=== PATIENT | female | born 1960 | race Caucasian/White ===

== ENCOUNTER → 2016-09-14 | Outpatient (CLI) | payer MEDICAID, OTHER ==
[2016-09-14 07:33] LABS: Basophils % (A) 1 %; CH 28.9; CHCM 35.3; Eosinophils # (A) 0.3 k/uL (0-0.7); Eosinophils % (A) 3 %; HCT 36.6 % (34.0-46.0); HDW 3.47; Luc # (Auto) 0.15; Luc % (Auto) 2; Lymphocytes # (A) 2.5 k/uL (1.0-4.8); Lymphocytes % (A) 33 %; MCH 29.1 pg (25.0-35.0); MCHC 35.5 g/dL (31.0-37.0); MCV 82.1 fL (80.0-100.0); Mean Platelet Volume 7.5; Monocytes # (A) 0.3 k/uL (0-1.0); Monocytes % (A) 4 %; Neutrophils # (A) 4.3 k/uL (1.3-7.7); Neutrophils % (A) 57 %; Poikilocytosis Slight; RBC 4.45 m/uL (3.80-5.40); RDW 14.6 % (11.5-15.5); WBC 7.7 k/uL (3.8-10.6); WBC (Perox) 7.31
[2016-09-14 07:51] LABS: ALT 32 U/L (9-52); AST 23 U/L (14-36); Alkaline Phosphatase 58 U/L (38-126); Anion Gap 12 mmol/L; Blood Urea Nitrogen 19 mg/dL (7-17); Calcium 9.3 mg/dL (8.4-10.2); Carbon Dioxide 24 mmol/L (22-30); Chloride 106 mmol/L (98-107); Cholesterol 195 mg/dL (<200); Glucose 120 mg/dL (74-99); HDL Cholesterol 40 mg/dL (40-60); Non-African American GFR(MDRD) >60 (>60 ml/min/1.73 sqM); Potassium 4.3 mmol/L (3.5-5.1); Sodium 142 mmol/L (137-145); Total Bilirubin 0.5 mg/dL (0.2-1.3); Total Protein 7.6 g/dL (6.3-8.2); Triglycerides 166 mg/dL (<150)
[2016-09-14 13:34] LABS: Urine Creatinine 48.3 mg/dL
[2016-09-14 14:38] LABS: Hemoglobin A1C 5.8 % (4.2-6.1)
== END | disposition home or self-care (01) ==
LOC: LABWHC1 06:48
PROVIDERS: ATTEND Family Medicine
DX: E11.9 Type 2 diabetes mellitus without complications (principal); E78.2 Mixed hyperlipidemia; E55.9 Vitamin D deficiency, unspecified
CPT/HCPCS: 36415; 80053; 80061; 82043; 82306; 82570; 83036; 85025

== ENCOUNTER → 2016-11-26 | Outpatient (CLI) | payer MEDICAID, OTHER ==
--- NOTE | 2016-11-27 12:23 | MR ---
EXAMINATION TYPE: MR knee RT wo con DATE OF EXAM: 11/26/2016 10:22 AM COMPARISON: NONE HISTORY: Right knee pain TECHNIQUE: Multiplanar, multisequence imaging of the right knee is performed. FINDINGS: MEDIAL MENISCUS: Complex tear posterior horn and body medial meniscus. Anterior horn of the medial me niscus is intact with myxoid degeneration noted. LATERAL MENISCUS: Anterior and posterior horns are intact without tear. 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 CRUCIATE LIGAMENTS: The anterior and posterior cruciate ligaments are intact and unremarkable. COLLATERAL LIGAMENTS: The medial collateral ligament and lateral collateral ligament complex are intact and unremarkable. EXTENSOR MECHANISM: Visualized quadriceps and patellar tendons are intact. EFFUSION: Small joint effusion noted. POPLITEAL CYST: No popliteal/wolf cyst. TRICOMPARTMENT SPACES: Moderate narrowing medial tibiofemoral joint space as well as the patellofemor al joint space with associated spurring. CARTILAGE: The articular cartilage is maintained without abnormal signal or full-thickness defect. BONE MARROW SIGNAL: No focal abnormal marrow signal is appreciated: OTHER: No additional significant abnormality is appreciated. IMPRESSION: 1. Complex tear posterior horn medial meniscus. 2. Myxoid degeneration as discussed. 3. Changes of osteoarthritis.
== END | disposition home or self-care (01) ==
LOC: RADMRIMAIN 09:34
PROVIDERS: ATTEND Orthopaedic Surgery
DX: S83.231A Complex tear of medial meniscus, current injury, right knee, initial encounter (principal); M17.11 Unilateral primary osteoarthritis, right knee

== ENCOUNTER → 2016-12-06 | Outpatient (CLI) | payer MEDICAID, OTHER ==
--- NOTE | 2016-12-08 06:54 | MM ---
Reason for exam: screening (asymptomatic). Last mammogram was performed 1 year and 1 month ago. History: Patient is postmenopausal. Took hormonal contraceptives for 6 years beginning at age 23. Physical Findings: A clinical breast exam by your physician is recommended on an annual basis and results should be correlated with mammographic findings. MG 3D Screening Mammo W/Cad Bilateral CC and MLO view(s) were taken. Prior study comparison: November 03, 2015, bilateral MG 3d screening mammo w/cad. October 08, 2014, bilateral MG screening mammo w CAD. February 12, 2014, left breast MG diagnostic mammo LT w CAD. August 06, 2013, bilateral MG screening mammo w CAD. There are scattered fibroglandular densities. No significant changes when compared with prior studies. ASSESSMENT: Negative, BI-RAD 1 RECOMMENDATION: Routine screening mammogram of both breasts in 1 year.
== END | disposition home or self-care (01) ==
LOC: RADMAMWWP 09:15
PROVIDERS: ATTEND Family Medicine
DX: Z12.31 Encounter for screening mammogram for malignant neoplasm of breast (principal)
CPT/HCPCS: 77063; G0202

== ENCOUNTER → 2017-12-27 | Outpatient (CLI) | payer MEDICAID, OTHER ==
[2017-12-27 07:35] LABS: Basophils # (A) 0.1 k/uL (0-0.2); Basophils % (A) 1 %; Eosinophils # (A) 0.2 k/uL (0-0.7); Eosinophils % (A) 3 %; HCT 39.2 % (34.0-46.0); HGB 12.9 gm/dL (11.4-16.0); Lymphocytes # (A) 2.4 k/uL (1.0-4.8); Lymphocytes % (A) 31 %; MCH 28.6 pg (25.0-35.0); MCHC 32.9 g/dL (31.0-37.0); MCV 86.9 fL (80.0-100.0); Mean Platelet Volume 7.2; Monocytes # (A) 0.3 k/uL (0-1.0); Monocytes % (A) 5 %; Neutrophils # (A) 4.6 k/uL (1.3-7.7); Neutrophils % (A) 60 %; Platelet Count 207 k/uL (150-450); RBC 4.51 m/uL (3.80-5.40); RDW 14.4 % (11.5-15.5); WBC 7.7 k/uL (3.8-10.6)
[2017-12-27 17:45] LABS: Albumin 4.4 g/dL (3.80-4.90); Albumin/Globulin Ratio 1.76 (1.20-2.10); Anion Gap 8.3 mmol/L (4.00-12.00); Calcium 9.1 mg/dL (8.7-10.3); Carbon Dioxide 26.7 mmol/L (21.6-31.8); Globulin 2.5 g/dL (2.1-3.7); LDL Cholesterol,Calculated 111.8 mg/dL (0.0-131.0); Total Bilirubin 0.5 mg/dL (0.3-1.2); Total Protein 6.9 g/dL (6.2-8.2); VLDL Calculation 37.2 mg/dL (5.00-40.00)
[2017-12-27 17:52] LABS: T4, Free (Free Thyroxine) 1.2 ng/dL (0.80-1.80)
[2017-12-27 20:41] LABS: Hemoglobin A1C 6.1 % (4.0-6.0)
== END | disposition home or self-care (01) ==
LOC: LABWHC1 07:00
PROVIDERS: ATTEND Internal Medicine
DX: Z00.00 Encounter for general adult medical examination without abnormal findings (principal); E11.9 Type 2 diabetes mellitus without complications
CPT/HCPCS: 36415; 80053; 80061; 82043; 82570; 83036; 84439; 84443; 85025

== ENCOUNTER → 2018-02-01 | Outpatient (CLI) | payer MEDICAID, OTHER ==
--- NOTE | 2018-02-01 11:41 | ECHOF ---
Referral Reason:I47.9 paroxysmal tachycardia MEASUREMENTS -------- HEIGHT: 167.6 cm WEIGHT: 102.1 kg BP: RVIDd: 3.3 cm (< 3.3) IVSd: 1.1 cm (0.6 - 1.1) LVIDd: 4.8 cm (3.9 - 5.3) LVPWd: 1.1 cm (0.6 - 1.1) IVSs: 1.6 cm LVIDs: 2.6 cm LVPWs: 1.4 cm LA Diam: 3.7 cm (2.7 - 3.8) LAESV Index (A-L): 38.20 ml/m Ao Diam: 3.3 cm (2.0 - 3.7) AV Cusp: 2.1 cm (1.5 - 2.6) LA Diam: 3.1 cm (2.7 - 3.8) EPSS: 0.3 cm MV E Abraham: 0.68 m/s MV DecT: 230 ms MV A Abraham: 0.74 m/s MV E/A Ratio: 0.92 RAP: 5.00 mmHg RVSP: 32.25 mmHg MV EF SLOPE: 115.20 mm/s (70 - 150) MV EXCURSION: 1.59 cm (> 18.000) FINDINGS -------- Sinus rhythm. This was a technically adequate study. The left ventricular size is normal. There is borderline concentric left ventricular hypertrophy. Overall left ventricular systolic function is normal with, an EF between 55 - 60 %. The right ventricle is mildly enlarged. LA is moderately dilated 34-39 ml/m2 The right atrial size is normal. There is moderate aortic valve sclerosis. There is no evidence of aortic regurgitation. There is no evidence of aortic stenosis. The mitral valve leaflets are mildly thickened. Mild mitral regurgitation is present. Trace tricuspid regurgitation present. Right ventricular systolic pressure is normal at < 35 mmHg. The right ventricular systolic pressure, as measured by Doppler, is 32.25mmHg. Trace/mild (physiologic) pulmonic regurgitation. The aortic root size is normal. Normal inferior vena cava with normal inspiratory collapse consistent with estimated right atrial pre ssure of 5 mmHg. There is no pericardial effusion. CONCLUSIONS -------- 1. Sinus rhythm. 2. This was a technically adequate study. 3. The left ventricular size is normal. 4. There is borderline concentric left ventricular hypertrophy. 5. Overall left ventricular systolic function is normal with, an EF between 55 - 60 %. 6. The right ventricle is mildly enlarged. 7. LA is moderately dilated 34-39 ml/m2 8. There is moderate aortic valve sclerosis. 9. The mitral valve leaflets are mildly thickened. 10. Mild mitral regurgitation is present. 11. Trace tricuspid regurgitation present. 12. Right ventricular systolic pressure is normal at < 35 mmHg. 13. Trace/mild (physiologic) pulmonic regurgitation. 14. The aortic root size is normal. 15. There is no pericardial effusion. SENIOR STRATEGY MANAGER: Nakul Jerry RDCS
--- NOTE | 2018-02-02 13:20 | MM ---
Reason for exam: screening (asymptomatic). Last mammogram was performed 1 year and 2 months ago. History: Patient is postmenopausal. Took hormonal contraceptives for 6 years beginning at age 23. Physical Findings: A clinical breast exam by your physician is recommended on an annual basis and results should be correlated with mammographic findings. MG 3D Screening Mammo W/Cad Bilateral CC and MLO view(s) were taken. Prior study comparison: December 06, 2016, bilateral MG 3d screening mammo w/cad. November 03, 2015, bilateral MG 3d screening mammo w/cad. The breast tissue is heterogeneously dense. This may lower the sensitivity of mammography. There are benign appearing round calcifications bilaterally. There is no discrete abnormality. ASSESSMENT: Benign, BI-RAD 2 RECOMMENDATION: Routine screening mammogram of both breasts in 1 year.
== END | disposition home or self-care (01) ==
LOC: RADMAMWWP 07:44
PROVIDERS: ATTEND Internal Medicine
DX: Z12.31 Encounter for screening mammogram for malignant neoplasm of breast (principal); I51.7 Cardiomegaly; I34.0 Nonrheumatic mitral (valve) insufficiency; I37.1 Nonrheumatic pulmonary valve insufficiency; I35.8 Other nonrheumatic aortic valve disorders
CPT/HCPCS: 77063; 77067; 93306

== ENCOUNTER → 2019-01-08 | Outpatient (CLI) | payer MEDICAID, OTHER ==
--- NOTE | 2019-01-08 08:07 | XR ---
Cervical spine HISTORY: Neck pain and arm tingling 5 views of cervical spine There is multilevel spondylosis. Straightening of the cervical lordosis may be due to muscle spasm. T here is minimal anterolisthesis grade 1 C2-3, C4-5, retrolisthesis grade 1 C3-4, C5-6 and C6-7. There is multilevel loss of disc height especially C5-6 and C6-7, C7-T1. Prevertebral soft tissues are nor mal. Facet arthropathy changes present. Possible spinal curvature in the thoracic spine. Multilevel f oraminal encroachment due to uncovertebral joint hypertrophy to include C3-4, C4-5, C5-6 and C6-7 on the left, C5-6 and C6-7, C7-T1 on the right, possibly C7-T1 on the left. IMPRESSION: Degenerative disc disease, facet arthropathy, foraminal encroachment. Cervical MRI may be of benefit.
== END | disposition home or self-care (01) ==
LOC: RADXRMAIN 07:34
PROVIDERS: ATTEND Internal Medicine
DX: M50.30 Other cervical disc degeneration, unspecified cervical region (principal); M46.92 Unspecified inflammatory spondylopathy, cervical region
CPT/HCPCS: 72050

== ENCOUNTER → 2019-01-23 | Outpatient (CLI) | payer MEDICAID, OTHER ==
--- NOTE | 2019-01-23 09:50 | MR ---
"EXAMINATION TYPE: MR cervical spine wo con DATE OF EXAM: 01/23/2019 COMPARISON: 09/08/2011 HISTORY: radiculopathy cervical TECHNIQUE: Multiplanar, multisequence images of the cervical spine were acquired. C2-C3: Hypertrophic change of the facets with mild narrowing of the neural foramina. Bilateral joint hypertrophy greater on the right with greater foraminal encroachment. No disc herniation or canal mika nosis. C3-C4: Central disc herniation which abuts the anterior margin of the spinal cord. Uncovertebral join t hypertrophy and facet arthropathy contributes to mild foraminal encroachment. C4-C5: Degenerative disc disease with small focal right paracentral disc herniation abutting the ante rior margin of the spinal cord. Bilateral uncovertebral joint hypertrophy and facet arthropathy with mild bilateral foraminal encroachment. C5-C6: Severe degenerative disc disease with hypertrophic spurring and facet arthropathy. There is a severe canal stenosis and cord compression with a broad-based central and right paracentral disc shakira iation which is mildly progressed from the prior exam. Facet arthropathy and uncovertebral joint proj ecting contribute to severe bilateral foraminal encroachment. C6-C7: Central disc herniation with anterior cord compression which is similar appearance to the prio r exam. Uncovertebral joint hypertrophy contributes to severe bilateral foraminal encroachment. There is severe canal stenosis. C7-T1: No evidence for degenerative disc disease. No disc bulge/herniation or protrusion. No Canal stenosis. Foramina are patent bilaterally. Cervical segments are intact. There is normal alignment. Cervical spinal cord is of normal signal. Craniovertebral junction relationships are within normal limits. IMPRESSION: 1. There is mild compression of the largest disc herniation C5-C6 greater paracentrally the right and severe canal stenosis and marked cord compression. Degree of compressive myelitis not excluded. 2. Stable large central disc herniation C6-C7 with spinal cord compression and severe canal stenosis with bilateral foraminal encroachment. 3. Disc herniation C3-C4 and C4-C5 as discussed above which abuts the anterior margin of the spinal c ord with no significant displacement. A [place] level critical message alert has been initiated for Adamaris Flores MD via the [employer] 0 | Critical Results System on 01/23/2019 9:46 AM. This message alert has been sent to Adamaris Flores MD via the preferences provided by the clinician for the receipt of Radiology Critical Findings. [facility] – [place] [id number]."
== END | disposition home or self-care (01) ==
LOC: RADMRIMAIN 08:40
PROVIDERS: ATTEND Internal Medicine
DX: M48.02 Spinal stenosis, cervical region (principal); M50.11 Cervical disc disorder with radiculopathy, high cervical region; M53.82 Other specified dorsopathies, cervical region
CPT/HCPCS: 72141

== ENCOUNTER 2019-03-20 07:06 | Observation (INO) | payer MEDICAID, BC ==
[2019-03-14 10:47] VITALS: BMI 36.3
[~2019-03-20 07:06] MED LIST: BACITRACIN 50,000 UNIT, POLYMYXIN B 500,000 UNIT in SODIUM CHLORIDE 0.9% IRRIGATIO 1,00... IRRIGATION ONE; LIDOCAINE 1% 20 ML VIAL (10MG/ML) FOR IV START INTRADERMA PRN; ONDANSETRON 4 MG/2 ML VIAL IVP ONE
[2019-03-20] MEDS: LACTATED RINGERS 1,000 ML IV SCH (07:36)
[2019-03-20 07:41] LABS: Glucose,Whole Blood 147 mg/dL (75-99)
[2019-03-20] MEDS ORDERED: DEXAMETHASONE SOD PHOS (MDV) 100 MG/10 ML VIAL ONE (08:20)
[2019-03-20] MEDS ORDERED: LIDOCAINE 1% INJ 10MG/ML (20 ML MDV) ONE (08:20)
[2019-03-20] MEDS ORDERED: fentaNYL (PF) 50 MCG/ML 2 ML AMP ONE (08:20)
[2019-03-20] MEDS ORDERED: SUCCINYLCHOLINE CHLORIDE 100 MG/5 ML SYR IV ONE (08:20)
[2019-03-20] MEDS ORDERED: ePHEDrine SULFATE/0.9% NACL/PF 50 MG/5 ML SYRINGE IV ONE (08:20)
[2019-03-20] MEDS ORDERED: PROPOFOL 10 MG/ML 20 ML VIAL IV ONE (08:20)
[2019-03-20] MEDS ORDERED: MIDAZOLAM 2 MG/2 ML VIAL ONE (08:20)
[2019-03-20] MEDS ORDERED: BUPIVACAIN-EPI 0.25%-1:200,000 30 ML VIAL SQ ONE (09:00)
[2019-03-20] MEDS ORDERED: GELATIN SPONGE,ABSORB (LARGE) 1 EACH SPONGE MISCELLANE ONE (09:47)
[2019-03-20] MEDS ORDERED: THROMBIN (BOVINE) 5,000 UNIT VIAL TOPICAL ONE (09:47)
[2019-03-20] MEDS ORDERED: LACTATED RINGERS 1,000 ML IV ONE (09:54)
[2019-03-20] MEDS ORDERED: MAGNESIUM HYDROXIDE 2,400 MG/10 ML CUP PO PRN (10:26)
[2019-03-20] MEDS ORDERED: HYDROmorphone 1 MG/ML 1 ML SYRINGE IVP PRN (10:26)
[2019-03-20] MEDS ORDERED: HYDROmorphone 0.5 MG/0.5 ML SYRINGE IVP PRN (10:26)
[2019-03-20] MEDS ORDERED: ACETAMINOPHEN TAB 325 MG TAB PO PRN (10:27)
[2019-03-20] MEDS ORDERED: ONDANSETRON 4 MG/2 ML VIAL IVP PRN (10:27)
[2019-03-20] MEDS ORDERED: HYDROcodone/APAP 5-325MG 1 EACH TAB PO PRN (10:27)
--- NOTE | 2019-03-20 10:37 | P.OP ---
Date of Procedure: 03/20/19 Preoperative Diagnosis: Cervical myelopathy, severe cervical stenosis C5 6 C6 7, cervical myelomalacia, herniated nucleus pulposis C5 6 C6 7, degenerative disc see C5 6 C6 7, upper extremity weakness, upper extremity radiculopathy, neck pain Postoperative Diagnosis: Same Anesthesia: GETA Pathology: none sent Condition: stable Disposition: PACU Description of Procedure: BRIEF OPERATIVE NOTE Preoperative Diagnosis:Cervical myelopathy, severe cervical stenosis C5 6 C6 7, cervical myelomalacia, herniated nucleus pulposis C5 6 C6 7, degenerative disc see C5 6 C6 7, upper extremity weakness, upper extremity radiculopathy, neck pain Postoperative Diagnosis:Cervical myelopathy, severe cervical stenosis C5 6 C6 7, cervical myelomalacia, herniated nucleus pulposis C5 6 C6 7, degenerative disc see C5 6 C6 7, upper extremity weakness, upper extremity radiculopathy, neck pain Procedure: Anterior cervical decompression with discectomy and fusion C5 6 C6 7 Placement of interbody graft C5 6 C6 7 Application of anterior cervical plate C5 6 7 Surgeon: Dr. Herrera Underwriting Manager: Jorge BRUNNER who is present throughout the entire the case persistence during positioning, dissection, exposure, visualization, and all crucial elements of the case as well as closure. Anesthesia: General anesthesia per Dr. Lehman Estimated blood loss: Approximately 75 mL Complications: None apparent Components implanted: K2M Crenshaw anterior cervical plate system with 14 mm screws and 2 Vikos interbody bone grafts with 1 mL of DBX bone putty supplement the bone graft Disposition: To recovery room in good stable condition. OPERATIVE INDICATIONS The patient has had long-standing issues in their neck and upper extremities. Her symptoms have worsened over the past few months she has developed weakness at his upper bur extremities along with her radiculopathy and neck pain. She is dropping early signs of cervical myelopathy which correlate well with her severe cervical stenosis found on her MRI as well as her disc herniations and evidence of early myelomalacia. The patient has been through conservative treatment. We discussed various treatment options including surgery, and the patient wishes to proceed with surgery We discussed the risk, patient's alternatives and benefits of surgery including but not limited to, risk of bleeding risk of infection, risk of need for further surgery, risk of decreased, loss of motion, muscle function, malunion nonunion, hardware failure, nerve damage, paralysis, heart attack, and . OPERATIVE SUMMARY After discussing all the risks, patient alternatives and benefits at length, the patient elected to proceed with surgical intervention, signed informed consent, and presented for their procedure. The patient was seen and examined in the preoperative holding area and the surgical site was marked. The patient was given antibiotics and brought to the operating room. The patient was positioned on the operating room table in a supine position being careful to pad any bony prominences and pressure points. The patient was sedated and intubated by anesthesia in standard fashion. Once the airway and C- spine were stabilized the patient's arms were padded and tucked at her side, with her shoulders gently taped. The head was placed in a donut pad with the neck in good neutral alignment and position. We were careful to maintain the patient's cervical spine and good neutral alignment and position throughout. The patient was prepped and draped in a normal standard fashion. An appropriate timeout and keystone protocol performed. We were able to proceed with the surgery. The local wound area was infiltrated with local anesthetic at C6. An incision was made transversely approximately 2-1/2 cm over the appropriate levels at C6 on the right. Dissection was taken down subcutaneously to the level of the platysma which was split in line with its fibers. Dissection was t aken with a carotid approach, with the trachea and esophagus medial and the carotid sheath laterally. We dissected down to the anterior surface of the vertebral bodies at C5 6 and 7. Intraoperative x-ray was taken which showed a marker at the appropriate level of C5 6. With the appropriate level positively confirmed, we were able to proceed with discectomy at the appropriate levels starting at C5 6 and then moving to C6 7. All of the operative levels were exposed appropriately. The patient had all their twitches back, and there was no evidence of recurrent laryngeal issue. The wound was copiously irrigated and suctioned dry as had been done periodically throughout the case. At the appropriate level/levels of C5 6 and C6 7 I was able to use a rongeur to remove the very large anterior cervical osteophytes at each levels. I established an annulotomy with an 11 blade scalpel. A discectomy was performed with a combination of pituitary rongeurs, curettes, a high-speed bur, and Kerrison rongeurs. The posterior longitudinal ligament was taken down as were any posterior osteophytes. Note was made of severe central and bilateral foraminal stenosis with posterior spurring. This was all removed during the decompression and discectomy centrally and at the neural foramen. This gave good central and bilateral foraminal decompression. There is no evidence of any dural tear or leak. The endplates were prepared with a high-speed bur. With the endplates in good parallel position, I was able to size for the appropriate size interbody graft. The wound was irrigated and suctioned dry the graft was prepared and malleted into position. It had good alignment and position with the anterior surface flush with the anterior surface of the vertebral bodies. This was done similarly the appropriate levels first at C5 6 and then at C6 7. With the grafts intact, I was able to measure and contour and appropriate sized plate. The plate was positioned at the midline over the appropriate levels at C5 6 and 7. Screw holes were established with a hand drill and drill guide. Screws were placed in good alignment and position with excellent bony purchase. They were seated under the locking device. The construct was checked and found to be stable. Intraoperative x-ray was taken which showed good alignment and position of the implants at the appropriate levels. There was no evidence of any dural tear or leak. Good hemostasis was maintained. The wound was copiously irrigated and suctioned dry as had been done periodically throughout the case. The platysma was closed with absorbable suture. The subcutaneous tissue was closed. The subcuticular tissue was closed with absorbable suture. The wound was cleaned and dried and dressed appropriately. A soft cervical collar was placed appropriately. The patient was woken up by anesthesia, extubated, transferred back gently to their hospital bed and brought to the recovery room in good stable condition. The patient will be admitted to the hospital for appropriate postoperative care, medical management and monitoring. We will continue to follow them closely about the postoperative course.
[2019-03-20] MEDS: HYDROmorphone 0.5 MG/0.5 ML SYRINGE IVP PRN ×2 (11:12→11:31)
[2019-03-20 11:29] LABS: Glucose,Whole Blood 189 mg/dL (75-99)
[2019-03-20] MEDS: BENZOCAINE/MENTHOL LOZENG 1 EACH LOZENGE MUCOUS MEM PRN ×2 (12:06→18:17)
[2019-03-20] MEDS: SODIUM CHLORIDE 0.9% 1,000 ML IV SCH (12:42)
--- NOTE | 2019-03-20 13:38 | XR ---
Cervical spine HISTORY: Needle placement Single lateral view of the cervical spine There is an endotracheal tube in place. There is a needle present within the C5-6 disc space. Multile dawood spondylosis is present. IMPRESSION: Needle localization
--- NOTE | 2019-03-20 15:32 | XR ---
Cervical spine HISTORY: Status post anterior cervical fusion and discectomy Single lateral view of the cervical spine submitted Patient is status post anterior cervical fusion and discectomy at C5-C7, intervertebral spacing block s are present. Endotracheal tube remains in place. Anatomic alignment is noted. IMPRESSION: Orthopedic follow-up.
[2019-03-20] MEDS: NITROFURANTOIN MONOHYD/M-CRYST 100 MG CAP PO SCH (20:22)
[2019-03-21] MEDS: SODIUM CHLORIDE 0.9% 1,000 ML IV SCH ×2 (00:01→11:10)
[2019-03-21 02:22] VITALS: RESP 18
[2019-03-21] MEDS: LACTATED RINGERS 1,000 ML IV SCH (05:40)
[2019-03-21 07:03] LABS: Glucose,Whole Blood 150 mg/dL (75-99)
[2019-03-21] MEDS ORDERED: metFORMIN 500 MG TAB PO SCH (07:30)
[2019-03-21 08:00] VITALS: BP 129/74; PULSE 85; TEMP 97.7
[2019-03-21] MEDS: NITROFURANTOIN MONOHYD/M-CRYST 100 MG CAP PO SCH (08:43)
[2019-03-21] MEDS ORDERED: GLUT PO SCH (09:00)
[2019-03-21] MEDS ORDERED: [UNRECOGNIZED DRUG - OTHER] PO SCH (09:00)
[2019-03-21] MEDS ORDERED: SENNOSIDES-DOCUSATE SODIUM 1 EACH TAB PO SCH (09:00)
[2019-03-21] MEDS ORDERED: MV MIN PO SCH (09:00)
[2019-03-21] MEDS ORDERED: LYSINE PO SCH (09:00)
[2019-03-21] MEDS ORDERED: LOSARTAN 50 MG TAB PO SCH (09:00)
[2019-03-21] MEDS ORDERED: VIT C PO SCH (09:00)
[2019-03-21] MEDS ORDERED: HYDROCHLOROTHIAZIDE 12.5 MG CAP PO SCH (09:00)
--- NOTE | 2019-03-21 11:23 | P.DS ---
Providers Date of admission: 03/20/19 23:25 Attending physician: Maxine Herrera Primary care physician: Adamaris Flores MD Hospital Course: The patient presented on the day of admission as per their operative note. She had severe cervical stenosis with evidence cervical myelopathy and underwent her anterior cervical decompression with discectomy and fusion as per her operative note. She feels her upper extremities have already made some improvement since her surgery. She is having soreness around the base of her neck posteriorly which is understandable for her surgery. She has been able to tolerate her diet. Physical Exam The incision site is clean dry and intact. There is no erythema no drainage. There is no purulence no evidence of infection. Her neck is soft and supple. Abdomen soft and nontender. Chest has good excursion with deep inspiration and expiration. The patient has active and passive range of motion intact at the upper and lower extremities. There is no acute change in neurologic status. She has good motion in her hands wrists and elbows and arms. Hospital Course Postoperative day #1 status post anterior cervical decompression with discectomy and fusion for her severe cervical stenosis with cervical myelopathy upper ex tremity radiculopathy and degenerative disc disease. The patient has been making good progress postoperatively. She is improving already at her upper extremities and is happy with that. They have completed the prophylactic antibiotics without any signs or symptoms of infection. The patient has been able to advance their diet, and is tolerating diet adequately. The pain was initially controlled with IV medications and is now controlled appropriately with oral medications. The patient has been able to increase their mobilization. She is ambulatory in her room and into the hallways. The patient has progressed appropriately. I think they are in good stable condition for discharge today. They will be sent home with appropriate prescriptions. I answered their questions to the best of my ability in a language that they can understand and they are agreeable with the plan. They will follow up as directed in approximately 2 weeks or sooner if she is having any problems. Patient Condition at Discharge: Good Plan - Discharge Summary Discharge Rx Participant: Yes New Discharge Prescriptions: New HYDROcodone/APAP 5-325MG [[place] 5] 1 each PO Q4HR PRN #18 tab PRN Reason: Pain No Action metFORMIN HCL 1,000 mg PO DAILY Xanax(Dose Unknown) 1 tab PO W/SUPPER Mv-Min/Vit C/Glut/Lysine/Hc124 [Airborne Tablet Chewable] 1 each PO DAILY Losartan Potassium 100 mg PO QAM Hydrochlorothiazide 12.5 mg PO QAM Nitrofurantoin Macrocrystal [Nitrofurantoin] 1 cap PO BID Discharge Medication List metFORMIN HCL 1,000 mg PO DAILY 11/19/15 [History] Hydrochlorothiazide 12.5 mg PO QAM 03/14/19 [History] Losartan Potassium 100 mg PO QAM 03/14/19 [History] Mv-Min/Vit C/Glut/Lysine/Hc124 [Airborne Tablet Chewable] 1 each PO DAILY 03/14/19 [History] Xanax(Dose Unknown) 1 tab PO W/SUPPER 03/14/19 [History] HYDROcodone/APAP 5-325MG [[place] 5] 1 each PO Q4HR PRN #18 tab 03/20/19 [Rx] Nitrofurantoin Macrocrystal [Nitrofurantoin] 1 cap PO BID 03/20/19 [History] Follow up Appointment(s)/Referral(s): Maxine Herrera DO [Doctor of Osteopathic Medicine] - 04/02/19 3:15 pm Patient Instructions/Handouts: *Surgery [facility] - ([place]) Cervical Surgery Discharge Instructions Activity/Diet/Wound Care/Special Instructions: Keep site clean. May shower with waterproof Tegaderm intact. Do not soak in a tub. After 72 hours postoperatively, patient May remove dressing and then may shower with area uncovered. Leave Steri-Strips intact and allow them to fray off on their own. May ambulate as tolerated. Avoid heavy or rigorous activity. No repetitive bending twisting or lifting. No overhead work.
== END 2019-03-21 13:09 | disposition home or self-care (01) ==
LOC: OR 07:06 → 4SSUR 10:38 → OR 23:31
PROVIDERS: ADMIT Orthopaedic Surgery Orthopaedic Surgery of the Spine; ATTEND Orthopaedic Surgery Orthopaedic Surgery of the Spine
DX: M48.02 Spinal stenosis, cervical region (principal); G95.89 Other specified diseases of spinal cord; M50.022 Cervical disc disorder at C5-C6 level with myelopathy; M50.122 Cervical disc disorder at C5-C6 level with radiculopathy; M43.12 Spondylolisthesis, cervical region; I10 Essential (primary) hypertension; E11.9 Type 2 diabetes mellitus without complications; E78.5 Hyperlipidemia, unspecified; E66.9 Obesity, unspecified; Z68.36 Body mass index [BMI] 36.0-36.9, adult; Z79.899 Other long term (current) drug therapy; Z79.84 Long term (current) use of oral hypoglycemic drugs; Z97.3 Presence of spectacles and contact lenses; Z98.890 Other specified postprocedural states; Z90.710 Acquired absence of both cervix and uterus; Z82.49 Family history of ischemic heart disease and other diseases of the circulatory system; R00.1 Bradycardia, unspecified; Z98.51 Tubal ligation status; Z78.0 Asymptomatic menopausal state; Z81.8 Family history of other mental and behavioral disorders
CPT/HCPCS: 72020; 22551; 22552; 22845; G0378 ×2; C1713 ×2; C1762; J2250; J0690; J2405; J2001; J3010; J1100; J0330; J2704; J1170

== ENCOUNTER → 2019-11-18 | Outpatient (CLI) | payer MEDICAID ==
--- NOTE | 2019-11-20 11:06 | MM ---
Reason for exam: screening (asymptomatic). Last mammogram was performed 1 year and 9 months ago. History: Patient is postmenopausal. Took hormonal contraceptives for 6 years beginning at age 23. Physical Findings: A clinical breast exam by your physician is recommended on an annual basis and results should be correlated with mammographic findings. MG 3D Screening Mammo W/Cad Bilateral CC and MLO view(s) were taken. Prior study comparison: February 01, 2018, bilateral MG 3d screening mammo w/cad. December 06, 2016, bilateral MG 3d screening mammo w/cad. There are scattered fibroglandular densities. No significant changes when compared with prior studies. ASSESSMENT: Negative, BI-RAD 1 RECOMMENDATION: Routine screening mammogram of both breasts in 1 year.
== END | disposition home or self-care (01) ==
LOC: RADMAMWWP 11:15
PROVIDERS: ATTEND Internal Medicine
DX: Z12.31 Encounter for screening mammogram for malignant neoplasm of breast (principal)
CPT/HCPCS: 77063; 77067

== ENCOUNTER → 2020-09-02 | Outpatient (CLI) | payer MEDICAID ==
--- NOTE | 2020-09-02 13:30 | NM ---
EXAMINATION TYPE: NM stress cardiolite complete DATE OF EXAM: 09/02/2020 COMPARISON: NONE HISTORY: Chest pain TECHNIQUE: After the intravenous administration of 9.7 mCi Tc 99m Sestamibi - Rest images obtained 4 5 minutes post injection. The patient exercised using a NATHANAEL protocol and 1 minute prior to peak e xercise was injected with 25.5 mCi Tc 99m Sestamibi - Stress images obtained 30 minutes post injectio n. FINDINGS: Targeted heart rate was achieved during performance of the study. Review of stress and rest SPECT rhonda ges demonstrates no distinct perfusion abnormality. Gated analysis shows normal wall motion with an estimated left ventricular ejection fraction of 62 %. IMPRESSION: No scintigraphic evidence for reversible ischemia
--- NOTE | 2020-09-02 17:37 | P.STRESS ---
- Stress Test Note Stress Test Results/Findings: Exam Performed: NM stress cardiolite complete Exam Date: 09/02/20 Reason for Exam: Chest Pain Height: 5 ft 6 in Weight: 98.883 kg Protocol: Fawad Stage: 3 Duration of Exercise: 7:20 Resting Heart Rate: 66 Resting Blood Pressure: 127/82 Maximum Achieved Heart Rate: 149 Maximum Achieved Blood Pressure: 173/88 85% PMHR: 137 100% PMHR: 161 METS: 8.9 Technologist Comment: Stress Test Results/Findings: This is a 60-year-old female with history of hypertension and diabetes being evaluated for symptoms of chest pain and palpitations. Stress data: Baseline EKG showed sinus rhythm with normal NV interval and QRS duration with a nonspecific ventricular conduction delay. Blood pressure at rest is 127/82 with pulse rate of 66. Patient exercised on the Fawad protocol for about 7 minutes and 20 seconds, reaching a maximum rate of 149 with a blood pressure of 140/96. EKGs taken during and after exercise did not reveal any significant changes from the baseline. He patient did not experience any chest pain. Final impression: #1. Negative stress test #2 patient did not experience any chest pain #3. No arrhythmias noted. #4. Report of the nuclear images to be given by the radiologist
--- NOTE | 2020-09-03 11:21 | ECHOS ---
Stress Test Results/Findings: Exam Performed: NM stress cardiolite complete Exam Date: 09/02/20 Reason for Exam: Chest Pain Height: 5 ft 6 in Weight: 98.883 kg Protocol: Fawad Stage: 3 Duration of Exercise: 7:20 Resting Heart Rate: 66 Resting Blood Pressure: 127/82 Maximum Achieved Heart Rate: 149 Maximum Achieved Blood Pressure: 173/88 85% PMHR: 137 100% PMHR: 161 METS: 8.9 Technologist Comment: Stress Test Results/Findings: This is a 60-year-old female with history of hypertension and diabetes being evaluated for symptoms of chest pain and palpitations. Stress data: Baseline EKG showed sinus rhythm with normal IA interval and QRS duration with a nonspecific ventricular conduction delay. Blood pressure at rest is 127/82 with pulse rate of 66. Patient exercised on the Fawad protocol for about 7 minutes and 20 seconds, reaching a maximum rate of 149 with a blood pressure of 140/96. EKGs taken during and after exercise did not reveal any significant changes from the baseline. He patient did not experience any chest pain. Final impression: #1. Negative stress test #2 patient did not experience any chest pain #3. No arrhythmias noted. #4. Report of the nuclear images to be given by the radiologist GGAAN
== END | disposition home or self-care (01) ==
LOC: RADNMMAIN 07:50
PROVIDERS: ATTEND Internal Medicine
DX: R07.89 Other chest pain (principal)
CPT/HCPCS: 93017; 78452; A9500

== ENCOUNTER 2021-12-08 08:20 | Day surgery (SDC) | payer MEDICAID ==
[2021-12-07 12:03] VITALS: BMI 34.7
[2021-12-08] MEDS ORDERED: LACTATED RINGERS 1,000 ML IV SCH (08:35)
[2021-12-08] MEDS ORDERED: LIDOCAINE 1% (10MG/ML) FOR IV START INTRADERMA PRN (08:35)
[2021-12-08 08:58] VITALS: TEMP 97.1
[2021-12-08 09:00] LABS: Glucose,Whole Blood 124 mg/dL (70-110)
[2021-12-08] MEDS ORDERED: LIDOCAINE 2% INJ 20 MG/ML (2 ML VIAL) ONE (09:40)
[2021-12-08] MEDS ORDERED: PROPOFOL 10 MG/ML 20 ML VIAL IV ONE (09:40)
--- NOTE | 2021-12-08 09:59 | P.PCN ---
Date of Procedure: 12/08/21 Procedure(s) Performed: BRIEF HISTORY: Patient is a 61-year-old pleasant white female scheduled for an elective colonoscopy as a part of screening for colorectal neoplasia. PROCEDURE PERFORMED: Colonoscopy with snare polypectomy. PREOPERATIVE DIAGNOSIS: Screening for colon cancer. IV sedation per Anesthesia. PROCEDURE: After informed consent was obtained, the patient, was brought into the endoscopy unit. IV sedation was administered by Anesthesia under continuous monitoring. Digital rectal examination was normal. Initially the Olympus CF-160 flexible video colonoscope was then inserted in the rectum, gradually advanced into the cecum without any difficulty. Careful examination was performed as the scope was gradually being withdrawn. Ileocecal valve and the appendiceal orifice were visualized and appeared normal. Prep was excellent. Mucosa of the cecum, and upon centimeter broad-based polyp removed by snare polypectomy. In the transverse colon there was a 3 mm and 5 mm polyp removed by snare polypectomy. ascending colon, transverse colon, descending colon, sigmoid colon, and rectum appeared normal. In the rectum there was a 3 mm polyp removed by snare polypectomy. Scattered sigmoid diverticulosis seen. Retroflexion was performed in the rectum and no lesions were seen. The patient tolerated the procedure well. IMPRESSION: 1 cm broad-based cecal polyp status post polypectomy 3 mm and 5 mm transverse colon polyp status post polypectomy 3 mm rectal polyp status post polypectomy RECOMMENDATIONS: Findings of this examination were discussed with the patient is well as her family. She was advised to follow with the biopsy results. If the biopsy result adenoma she can have a repeat colonoscopy in 3 years..
[2021-12-08 10:15] VITALS: BP 99/60; PULSE 64; RESP 18
== END 2021-12-08 10:50 | disposition home or self-care (01) ==
LOC: ORWHC2ENDO 08:20
PROVIDERS: ATTEND Internal Medicine Gastroenterology
DX: Z12.11 Encounter for screening for malignant neoplasm of colon (principal); D12.0 Benign neoplasm of cecum; D12.3 Benign neoplasm of transverse colon; K62.1 Rectal polyp; K57.30 Diverticulosis of large intestine without perforation or abscess without bleeding
CPT/HCPCS: 88305; 45385; J2704; J2001

== ENCOUNTER → 2021-12-31 | Outpatient (CLI) | payer MEDICAID ==
[2021-12-31 10:43] LABS: Basophils # (A) 0.04 X 10*3/uL (0.00-0.10); Basophils % (A) 0.5 %; Eosinophils % (A) 2.7 %; HGB 12.7 g/dL (12.0-15.0); Immature Grans, Automated 0.4 %; Lymphocytes % (A) 31.3 %; MCH 29.1 pg (27.0-32.0); MCHC 33.4 g/dL (32.0-37.0); Mean Platelet Volume 10.8 fL (9.5-12.2); Monocytes # (A) 0.47 X 10*3/uL (0.20-1.00); Monocytes % (A) 6.4 %; NRBC Per 100 WBC 0 /100 WBCS (0.0-0.0); Neutrophils % (A) 58.7 %; Platelet Count 193 X 10*3/uL (140-440); RBC 4.37 X 10*6/uL (4.10-5.20); RDW 13.4 % (11.5-14.5); WBC 7.34 X 10*3/uL (4.50-10.00)
[2021-12-31 10:55] LABS: ALT 18 U/L (8-44); AST 25 U/L (13-35); African American GFR (CKD) 106.9 (60.0-200.0); Albumin 4.3 g/dL (3.8-4.9); Albumin/Globulin Ratio 1.59 (1.60-3.17); Alkaline Phosphatase 64 U/L (41-126); Blood Urea Nitrogen 14.1 mg/dL (9.0-27.0); Calcium 9.3 mg/dL (8.7-10.3); Carbon Dioxide 29.3 mmol/L (20.0-27.5); Chloride 100 mmol/L (96-109); Chol/HDL Ratio 5.05 Ratio; Globulin 2.7 g/dL (1.6-3.3); Glucose 134 mg/dL (70-110); LDL Cholesterol,Calculated 146.4 mg/dL (0.0-131.0); Non-African American GFR(CKD) 92.3 (60.0-200.0); Potassium 4.2 mmol/L (3.5-5.5); Sodium 139 mmol/L (135-145)
--- NOTE | 2021-12-31 12:10 | BD ---
EXAMINATION TYPE: Axial Bone Density DATE OF EXAM: 12/31/2021 COMPARISON: FIRST BONE DENSITY, BASELINE DEXA CLINICAL HISTORY: 61 years year old Female. ICD-10 CODE: M81.0 Osteporosis Height: 65 Weight: 217 FRAX RISK QUESTIONS: NOTHING TO NOTE HERE RISK FACTORS HISTORY OF: Postmenopausal woman: YES AT AGE 49 YR OLD Hyperparathyroidism: NO Adrenal Insufficiency: NO MEDICATIONS: Additional Medications: BP MEDS, METFORMIN, CALCIUM AND VIT D IN MULTIVITAMIN Additional History: HYPERTENSION, DIABETES, EXAM MEASUREMENTS: Bone mineral densitometry was performed using the [employer]igoVision System. Bone mineral density as measured about the Lumbar spine is: ----- L1-L4(G/cm2): 1.517 T Score Values are as follows: ----- L1: 1.4 ----- L2: 1.6 ----- L3: 2.7 ----- L4: 4.9 ----- L1-L4: 2.8 Bone mineral density BASELINE TODAY Bone mineral density about the R hip (g/cm2): 1.148 Bone mineral density about the L hip (g/cm2): 1.177 T Score values are as follows: -----R Neck: 0.9 -----L Neck: 1.0 -----R Total: 1.1 -----L Total: 1.3 Bone mineral density BASELINE FRAX%s: The graph provided illustrates a 5.1% chance for a major osteoporotic fx and a 0.0% chance fo r the hips probability for fx in 10 years time. IMPRESSION: Normal (Values between +1 and -1 indicate normal bone mass). Consider repeating this study in 5 year s or sooner if there is some new clinical indication. NOTE: T-SCORE=SD OF THE YOUNG ADULT MEAN.
--- NOTE | 2022-01-03 20:12 | MM ---
Reason for Exam: Screening (asymptomatic). Last mammogram was performed 2 year(s) and 1 month(s) ago. Patient History: Menarche at age 11. First Full-Term at age 31. Late child-bearing (after 31). Hysterectomy at age 53. Postmenopausal. Patient has history of breast feeding. Hormonal Contraceptives for 6 years from age 23 until age 29. Risk Values: Lillie 5 year model risk: 2.2%. NCI Lifetime model risk: 10.9%. Prior Study Comparison: 12/06/2016 Bilateral Screening Mammogram, [facility]. 02/01/2018 Bilateral Screening Mammogram, [facility]. 11/18/2019 Bilateral Screening Mammogram, [facility]. Tissue Density: There are scattered fibroglandular densities. Findings: Analyzed By CAD. There is no suspicious group of microcalcifications or new suspicious mass in either breast. Overall Assessment: Negative, BI-RAD 1 Management: Screening Mammogram of both breasts in 1 year. 1. Patient should continue monthly self breast exams. 2. A clinical breast exam by your physician is recommended on an annual basis. 3. This exam should not preclude additional follow-up of suspicious palpable abnormalities. Electronically signed and approved by: Ramirez Rubio M.D. Radiologist
== END | disposition home or self-care (01) ==
LOC: RADMAMWWP 07:00
PROVIDERS: ATTEND Internal Medicine Geriatric Medicine
DX: Z12.31 Encounter for screening mammogram for malignant neoplasm of breast (principal); M81.0 Age-related osteoporosis without current pathological fracture
CPT/HCPCS: 77063; 77067; 77080; 80053; 80061; 83036; 84443; 85025

== ENCOUNTER → 2023-01-19 | Outpatient (CLI) | payer MEDICAID ==
--- NOTE | 2023-01-22 16:41 | MM ---
Reason for Exam: Screening (asymptomatic). Last mammogram was performed 1 year(s) and 1 month(s) ago. Patient History: Menarche at age 11. First Full-Term at age 31. Late child-bearing (after 31). Hysterectomy at age 53. Postmenopausal. Patient has history of breast feeding. Hormonal Contraceptives for 6 years from age 23 until age 29. Risk Values: Lillie 5 year model risk: 2.2%. NCI Lifetime model risk: 10.6%. Prior Study Comparison: 02/01/2018 Bilateral Screening Mammogram, [facility]. 11/18/2019 Bilateral Screening Mammogram, [facility]. 12/31/2021 Bilateral MG 3D screening mammo w/cad, [facility]. Tissue Density: There are scattered fibroglandular densities. Findings: Analyzed By CAD. There is no suspicious group of microcalcifications or new suspicious mass in either breast. Overall Assessment: Negative, BI-RAD 1 Management: Screening Mammogram of both breasts in 1 year. . Patient should continue monthly self-breast exams. A clinical breast exam by your physician is recommended on an annual basis. This exam should not preclude additional follow-up of suspicious palpable abnormalities. Note on Lillie scores and lifetime risk: 1. A Lillie score greater than 3% is considered moderate risk. If this is the case, consider specialist referral to assess eligibility for a risk reducing agent. 2. If overall lifetime risk for the development of breast cancer is 20% or higher, the patient may qualify for future screening with alternating mammogram and breast MRI. Electronically signed and approved by: Ramirez Rubio M.D. Radiologist
== END | disposition home or self-care (01) ==
LOC: RADMAMWWP 15:52
PROVIDERS: ATTEND Internal Medicine Geriatric Medicine
DX: Z12.31 Encounter for screening mammogram for malignant neoplasm of breast (principal); Z78.0 Asymptomatic menopausal state
CPT/HCPCS: 77063; 77067

== ENCOUNTER → 2023-04-05 | Outpatient (CLI) | payer MEDICAID ==
--- NOTE | 2023-04-05 17:08 | XR ---
EXAMINATION TYPE: XR cervical spine comp DATE OF EXAM: 04/05/2023 4:46 PM CLINICAL INDICATION:Female, 62 years old with history of M54.12 Radiculopathy; COMPARISON: 03/20/2019 TECHNIQUE: The cervical spine was imaged in frontal, lateral, odontoid and bilateral oblique. FINDINGS: Fixation hardware at C5-C7 appears intact. The osseous structures show normal alignment without evidence of an acute fracture. There are osteoph ytes noted throughout the cervical spine on the anterior and lateral aspects of the vertebral bodies. The intervertebral disk spaces are narrowed at multiple levels. Pedicles are intact. Soft tissues a re within normal limits. The odontoid appears intact. IMPRESSION: 1. No fracture or dislocation. 2. Fixation hardware intact with moderate degenerative disc disease changes of the cervical spine.
== END | disposition home or self-care (01) ==
LOC: RADXRMAIN 15:59
PROVIDERS: ATTEND Physician Assistant
DX: M50.10 Cervical disc disorder with radiculopathy, unspecified cervical region (principal); Z98.890 Other specified postprocedural states
CPT/HCPCS: 72050

== ENCOUNTER → 2024-01-29 | Outpatient (CLI) | payer MEDICAID ==
--- NOTE | 2024-01-30 08:10 | MM ---
Reason for Exam: Screening (asymptomatic). Last screening mammogram was performed 12 month(s) ago. Patient History: Menarche at age 11. First Full-Term at age 31. Late child-bearing (after 31). Hysterectomy at age 53. Postmenopausal. Patient has history of breast feeding. Hormonal Contraceptives for 6 years from age 23 until age 29. Risk Values: Lillie 5 year model risk: 2.3%. NCI Lifetime model risk: 10.3%. Prior Study Comparison: 11/18/2019 Bilateral Screening Mammogram, [facility]. 12/31/2021 Bilateral MG 3D screening mammo w/cad, [facility]. 01/19/2023 Bilateral MG 3D screening mammo w/cad, [facility]. Tissue Density: There are scattered areas of fibroglandular density. Findings: Analyzed By CAD. There is no suspicious group of microcalcifications or new suspicious mass in either breast. Overall Assessment: Benign, BI-RAD 2 Management: Screening Mammogram of both breasts in 1 year. . Patient should continue monthly self-breast exams. A clinical breast exam by your physician is recommended on an annual basis. This exam should not preclude additional follow-up of suspicious palpable abnormalities. Note on Lillie scores and lifetime risk: 1. A Lillie score greater than 3% is considered moderate risk. If this is the case, consider specialist referral to assess eligibility for a risk reducing agent. 2. If overall lifetime risk for the development of breast cancer is 20% or higher, the patient may qualify for future screening with alternating mammogram and breast MRI. [facility], , 01/30/2024 8:07 AM. Electronically signed and approved by: Carlton Santos M.D. Radiologis
== END | disposition home or self-care (01) ==
LOC: RADMAMWWP 15:44
PROVIDERS: ATTEND Internal Medicine Geriatric Medicine
DX: Z12.31 Encounter for screening mammogram for malignant neoplasm of breast (principal); Z78.0 Asymptomatic menopausal state; R92.323 Mammographic fibroglandular density, bilateral breasts
CPT/HCPCS: 77063; 77067